=== PATIENT | female | born 1960 | race Caucasian/White ===

== ENCOUNTER 2019-10-11 11:51 | Emergency (ER) | payer BC, OTHER ==
--- NOTE | 2019-10-11 12:44 | RAD REPORT ---
EXAM DESCRIPTION: RAD - Hand Right 3 View - 10/11/2019 12:36 pm CLINICAL HISTORY: fb Pain and swelling. COMPARISON: No comparisons FINDINGS: No fracture or radiopaque foreign body is seen.
--- NOTE | 2019-10-11 12:59 | ER ---
Nurse's Notes [facility] Name: Sallie Suarez Age: 59 yrs Sex: Female : 1960 Arrival Date: 10/11/2019 Time: 11:53 Bed 25 Private MD: Pepito Camacho H Diagnosis: Puncture wound without foreign body of right middle finger without damage to nail Presentation: 10/11 11:54 Note Pt states "I am going to the restroom first". aa5 11:58 Presenting complaint: Patient states: "I have splinter in my finger, I was cleaning the aa5 kitchen counter yesterday". Pt reports splinter to right ring finger. 11:58 Transition of care: patient was not received from another setting of care. Onset of aa5 symptoms was October 11, 2019. Risk Assessment: Do you want to hurt yourself or someone else? Patient reports no desire to harm self or others. Initial Sepsis Screen: Does the patient meet any 2 criteria? No. Patient's initial sepsis screen is negative. Does the patient have a suspected source of infection? No. Patient's initial sepsis screen is negative. Care prior to arrival: None. 11:58 Acuity: GABRIEL 4 aa5 11:58 Method Of Arrival: Ambulatory aa5 Triage Assessment: 12:06 General: Appears in no apparent distress. Behavior is calm, cooperative. Pain: ls4 Complains of pain in palmar aspect of distal phalanx of right ring finger and palmar aspect of distal phalanx of right middle finger Pain currently is 9 out of 10 on a pain scale. Quality of pain is described as tender, throbbing. Historical: - Allergies: 11:58 No Known Allergies; aa5 - PMHx: 11:58 hypotension; aa5 - PSHx: 11:58 None; aa5 - Immunization history:: Last tetanus immunization: unknown. - Social history:: Social history: Smoking status: Patient denies any tobacco usage or history of. - Ebola Screening: : No symptoms or risks identified at this time. Screenin:04 Abuse screen: Denies threats or abuse. Denies injuries from another. Nutritional ls4 screening: No deficits noted. Tuberculosis screening: No symptoms or risk factors identified. Fall Risk None identified. Vital Signs: 11:59 BP 147 / 81; Pulse 60; Resp 16 S; Temp 98.0(TE); Pulse Ox 99% on R/A; Weight 63.5 kg aa5 (R); Height 5 ft. 5 in. (165.10 cm) (R); Pain 9/10; 13:02 BP 132 / 78; Pulse 62; Resp 14; Temp 98.0; Pulse Ox 100% ; Pain 3/10; ls4 11:59 Body Mass Index 23.30 (63.50 kg, 165.10 cm) aa5 ED Course: 11:53 Patient arrived in ED. as 11:53 Pepito Camacho DO is Private Physician. as 11:54 Arm band placed on. aa5 11:58 Triage completed. aa5 12:00 Carlee Singleton FNP-C is [facility]. kb 12:00 Kermit Alvarado MD is Attending Physician. kb 12:00 Laura Azevedo, RN is Primary Nurse. ls4 12:04 Patient has correct armband on for positive identification. Bed in low position. Call ls4 light in reach. Side rails up X2. 12:04 No provider procedures requiring assistance completed. Patient did not have IV access ls4 during this emergency room visit. 12:36 Hand Right 3 View XRAY In Process Unspecified. EDMS Administered Medications: No medications were administered Outcome: 12:58 Discharge ordered by . kb 13:05 Patient left the ED. ls4 13:05 Discharged to home ambulatory. ls4 13:05 Condition: good 13:05 Discharge instructions given to patient, Instructed on discharge instructions, follow up and referral plans. Demonstrated understanding of instructions, follow-up care. Signatures: Dispatcher [employer] EDMS Carlee Singleton FNP-C FNP-Ckb Martinez, Amelia as Sofie Saini RN RN aa5 Laura Azevedo, RN RN ls4 Corrections: (The following items were deleted from the chart) 12:00 11:59 BP 147 / 81; Pulse 60bpm; Resp 16bpm; Spontaneous; Pulse Ox 99% RA; Temp 98.0F aa5 Temporal; 63.5 kg Reported; Height 5 ft. 5 in. Reported; BMI: 23.3; aa5
--- NOTE | 2019-10-11 12:59 | EDPHYS ---
Physician Documentation [facility] Name: Sallie Suarez Age: 59 yrs Sex: Female : 1960 Arrival Date: 10/11/2019 Time: 11:53 Bed 25 Private MD: Pepito Camacho H ED Physician Kermit Alvarado HPI: 10/11 13:22 This 59 yrs old Female presents to ER via Ambulatory with complaints of kb Foreign Body - splinter in finger. 13:22 The patient or guardian reports the patient has a suspected foreign body, of the right kb ring finger. The reported likely foreign body is sliver of wood. Onset: The symptoms/episode began/occurred yesterday. Current symptoms: foreign body sensation. Treatment Prior to Arrival: tried to remove, but couldn't get out. The patient has not experienced similar symptoms in the past. The patient has not recently seen a physician. Pt reports she was cleaning yesterday and got a splinter in right ring finger. States she has tried to remove it "with a lot of different tools," but was unsuccessful. slight swelling to area. No signs of infection noted. Historical: - Allergies: 11:58 No Known Allergies; aa5 - PMHx: 11:58 hypotension; aa5 - PSHx: 11:58 None; aa5 - Immunization history:: Last tetanus immunization: unknown. - Social history:: Social history: Smoking status: Patient denies any tobacco usage or history of. - Ebola Screening: : No symptoms or risks identified at this time. ROS: 13:21 Constitutional: Negative for fever, chills, and weight loss, ENT: Negative for injury, kb pain, and discharge, Neck: Negative for injury, pain, and swelling, Cardiovascular: Negative for chest pain, palpitations, and edema, Respiratory: Negative for shortness of breath, cough, wheezing, and pleuritic chest pain, Abdomen/GI: Negative for abdominal pain, nausea, vomiting, diarrhea, and constipation, MS/Extremity: Negative for injury and deformity, Neuro: Negative for headache, weakness, numbness, tingling, and seizure. 13:21 Skin: Positive for puncture, swelling, of the palmar aspect of distal phalanx of right ring finger and palmar aspect of distal phalanx of right middle finger. Exam: 13:22 Constitutional: This is a well developed, well nourished patient who is awake, alert, kb and in no acute distress. Head/Face: Normocephalic, atraumatic. ENT: Nares patent. No nasal discharge, no septal abnormalities noted. Tympanic membranes are normal and external auditory canals are clear. Oropharynx with no redness, swelling, or masses, exudates, or evidence of obstruction, uvula midline. Mucous membranes moist. Neck: Trachea midline, no thyromegaly or masses palpated, and no cervical lymphadenopathy. Supple, full range of motion without nuchal rigidity, or vertebral point tenderness. No Meningismus. Chest/axilla: Normal chest wall appearance and motion. Nontender with no deformity. No lesions are appreciated. Cardiovascular: Regular rate and rhythm with a normal S1 and S2. No gallops, murmurs, or rubs. Normal PMI, no JVD. No pulse deficits. Respiratory: Lungs have equal breath sounds bilaterally, clear to auscultation and percussion. No rales, rhonchi or wheezes noted. No increased work of breathing, no retractions or nasal flaring. Abdomen/GI: Soft, non-tender, with normal bowel sounds. No distension or tympany. No guarding or rebound. No evidence of tenderness throughout. MS/ Extremity: Pulses equal, no cyanosis. Neurovascular intact. Full, normal range of motion. Neuro: Awake and alert, GCS 15, oriented to person, place, time, and situation. Cranial nerves II-XII grossly intact. Motor strength 5/5 in all extremities. Sensory grossly intact. Cerebellar exam normal. Normal gait. 13:22 Skin: injury, puncture(s), that are superficial, of the palmar aspect of distal phalanx of right ring finger. Vital Signs: 11:59 BP 147 / 81; Pulse 60; Resp 16 S; Temp 98.0(TE); Pulse Ox 99% on R/A; Weight 63.5 kg aa5 (R); Height 5 ft. 5 in. (165.10 cm) (R); Pain 9/10; 13:02 BP 132 / 78; Pulse 62; Resp 14; Temp 98.0; Pulse Ox 100% ; Pain 3/10; ls4 11:59 Body Mass Index 23.30 (63.50 kg, 165.10 cm) aa5 MDM: 12:00 Patient medically screened. kb 12:57 Data reviewed: vital signs, nurses notes. Data interpreted: Pulse oximetry: on room air kb is 99 %. Interpretation: normal. Counseling: I had a detailed discussion with the patient and/or guardian regarding: the historical points, exam findings, and any diagnostic results supporting the discharge/admit diagnosis, radiology results, the need for outpatient follow up, a family practitioner, to return to the emergency department if symptoms worsen or persist or if there are any questions or concerns that arise at home. 10/11 12:00 Order name: Hand Right 3 View XRAY; Complete Time: 12:57 kb Administered Medications: No medications were administered Disposition: 13:40 Co-signature as Attending Physician, Kermit Alvarado MD I agree with the assessment and kdr plan of care. Disposition: 10/11/19 12:58 Discharged to Home. Impression: Puncture wound without foreign body of right middle finger without damage to nail. - Condition is Stable. - Discharge Instructions: Puncture Wound, [id number]. - Medication Reconciliation Form, Thank You Letter, Antibiotic Education, Prescription Opioid Use form. - Follow up: Emergency Department; When: As needed; Reason: Worsening of condition. Follow up: Private Physician; When: 2 - 3 days; Reason: Recheck today's complaints, Continuance of care, Re-evaluation by your physician. Signatures: Dispatcher [employer] EDNC Carlee Singleton, ANDREI-C TURRET LATHE OPERATOR-Kermit Lopez MD MD [facility] Sofie Saini RN RN aa5 Laura Azevedo RN RN ls4 Corrections: (The following items were deleted from the chart) 13:05 12:58 10/11/2019 12:58 Discharged to Home. Impression: Puncture wound without foreign ls4 body of right middle finger without damage to nail. Condition is Stable. Forms are Medication Reconciliation Form, Thank You Letter, Antibiotic Education, Prescription Opioid Use. Follow up: Emergency Department; When: As needed; Reason: Worsening of condition. Follow up: Private Physician; When: 2 - 3 days; Reason: Recheck today's complaints, Continuance of care, Re-evaluation by your physician. kb 13:22 13:21 Skin: Positive for puncture, swelling, of the palmar aspect of distal phalanx of kb right middle finger, kb
[2019-10-11 13:15] VITALS: BP 147/81; TEMP 98; O2SAT 99
== END 2019-10-11 13:05 | disposition home or self-care (01) ==
LOC: ER 11:51
DX: S61.234A Puncture wound without foreign body of right ring finger without damage to nail, initial encounter (principal); Y93.E9 Activity, other interior property and clothing maintenance; Y93.G9 Activity, other involving cooking and grilling; Y92.010 Kitchen of single-family (private) house as the place of occurrence of the external cause
CPT/HCPCS: 99283